=== PATIENT | female | born 1975 | race Caucasian/White ===

== ENCOUNTER 2017-11-14 23:10 | Emergency (ER) | payer MEDICAID ==
[~2017-11-14] VITALS: Ht 172.7 cm; Wt 89.0 kg
[~2017-11-14 23:10] MED LIST: IBUP-1222 PO
[2017-11-14 23:11] VITALS: BP 137/85
== END 2017-11-15 00:23 | disposition home or self-care (01) ==
LOC: ED 23:59
DX: Z00.00 Encounter for general adult medical examination without abnormal findings (principal); Z90.49 Acquired absence of other specified parts of digestive tract
CPT/HCPCS: 99283

== ENCOUNTER 2018-01-28 11:36 | Emergency (ER) | payer MEDICAID ==
[~2018-01-28] VITALS: Ht 172.7 cm; Wt 92.1 kg
[2018-01-28 11:44] VITALS: BP 124/86
[2018-01-28] MEDS ORDERED: KETOROLAC 30 MG/1 ML ONE (12:13)
[2018-01-28] MEDS ORDERED: DIAZEPAM 5 MG TABLET ONE (12:13)
[2018-01-28] MEDS ORDERED: DIAZEPAM 5 MG TABLET PO ONE (12:30)
[2018-01-28] MEDS ORDERED: KETOROLAC 30 MG/1 ML IM ONE (12:30)
== END 2018-01-28 13:38 | disposition home or self-care (01) ==
LOC: ED 13:25
DX: S49.92XA Unspecified injury of left shoulder and upper arm, initial encounter (principal); M54.2 Cervicalgia; M19.90 Unspecified osteoarthritis, unspecified site; F17.210 Nicotine dependence, cigarettes, uncomplicated; X58.XXXA Exposure to other specified factors, initial encounter; Y93.89 Activity, other specified; Y92.89 Other specified places as the place of occurrence of the external cause; Y99.8 Other external cause status
CPT/HCPCS: 72050; 73030; 96372; 99284; J1885